=== PATIENT | male | born 1995 | race Caucasian/White ===

== ENCOUNTER 2017-01-13 18:55 | Emergency (ER) | payer OTHER ==
[2017-01-13 19:15] VITALS: BP 115/72; PULSE 83; RESP 16; TEMP 96.2
--- NOTE | 2017-01-13 19:33 | ED ---
General Adult HPI - General Chief complaint: Recheck/Abnormal Lab/Rx Stated complaint: Med refill/needs insulin Time Seen by Provider: 01/13/17 19:10 Source: patient Mode of arrival: ambulatory Limitations: no limitations - Related Data Home Medications Medication Instructions Recorded Confirmed Insulin Aspart (For Pump) [NovoLOG 1 unit DIRECTED 01/13/17 01/13/17 (For Pump)] Previous Rx's Medication Instructions Recorded INSULIN LISPRO (For Pump) [humaLOG 0.01 units SQ-PUMP CONTINUOUS #2 01/13/17 (For Pump)] vial Allergies Allergy/AdvReac Type Severity Reaction Status Date / Time No Known Allergies Allergy Verified 01/13/17 19:15 Review of Systems ROS Statement: Those systems with pertinent positive or pertinent negative responses have been documented in the HPI. ROS Other: All systems not noted in ROS Statement are negative. Past Medical History Past Medical History: Diabetes Mellitus History of Any Multi-Drug Resistant Organisms: None Reported Past Surgical History: Tonsillectomy Past Psychological History: No Psychological Hx Reported Smoking Status: Current every day smoker Past Alcohol Use History: None Reported Past Drug Use History: Marijuana General Exam Limitations: no limitations Course Vital Signs 01/13/17 19:11 Temperature 96.2 F L Pulse Rate 83 Respiratory 16 Rate Blood Pressure 115/72 O2 Sat by Pulse 94 L Oximetry Disposition Clinical Impression: Diabetes mellitus, Medication refill Disposition: HOME SELF-CARE Condition: Good Instructions: Type 1 Diabetes in Adults (ED) Additional Instructions: Follow-up with endocrinology for supplies and any further insulin prescriptions. Return for any new, worsening, or concerning symptoms. Prescriptions: INSULIN LISPRO (For Pump) [humaLOG (For Pump)] 0.01 units SQ-PUMP CONTINUOUS #2 vial Referrals: None,Stated [Primary Care Provider] - 1-2 days Claudia Moraes MD [STAFF PHYSICIAN] - 1-2 days Time of Disposition: 19:32
--- NOTE | 2017-01-13 19:37 | ED ---
General Adult HPI - General Chief complaint: Recheck/Abnormal Lab/Rx Stated complaint: Med refill/needs insulin Time Seen by Provider: 01/13/17 19:10 Source: patient Mode of arrival: ambulatory Limitations: no limitations - History of Present Illness Initial comments: 21-year-old male patient presents to emergency permit today for refill of insulin for his insulin pump. Patient states that he has 5 units of insulin left in his pump. Patient states that he was discharged by his pediatric cut off machine operator and has never established care with an adult cut off machine operator. Patient states he did move to [place] for a short time but this is there would not accept his insurance. Patient states that he hasn't had appointments or follow-up with endocrinology for at least 1 year. Patient states that his uncle and he was using his insulin and just refilling his pump on his own. Patient denies any physical symptoms. States he feels "great". Denies any nausea, vomiting, abdominal pain, chest pain, shortness of breath, urinary symptoms, or difficulty with bowel movements. Patient states his blood sugars have been running in the low 200s which is normal for him. He is requesting referral for endocrinology. - Related Data Home Medications Medication Instructions Recorded Confirmed Insulin Aspart (For Pump) [NovoLOG 1 unit DIRECTED 01/13/17 01/13/17 (For Pump)] Previous Rx's Medication Instructions Recorded INSULIN LISPRO (For Pump) [humaLOG 0.01 units SQ-PUMP CONTINUOUS #2 01/13/17 (For Pump)] vial Allergies Allergy/AdvReac Type Severity Reaction Status Date / Time No Known Allergies Allergy Verified 01/13/17 19:15 Review of Systems ROS Statement: Those systems with pertinent positive or pertinent negative responses have been documented in the HPI. ROS Other: All systems not noted in ROS Statement are negative. Past Medical History Past Medical History: Diabetes Mellitus History of Any Multi-Drug Resistant Organisms: None Reported Past Surgical History: Tonsillectomy Past Psychological History: No Psychological Hx Reported Smoking Status: Current every day smoker Past Alcohol Use History: None Reported Past Drug Use History: Marijuana General Exam Limitations: no limitations General appearance: alert, in no apparent distress Eye exam: Present: normal appearance, PERRL, EOMI. Absent: scleral icterus, conjunctival injection, periorbital swelling ENT exam: Present: normal exam, mucous membranes moist Respiratory exam: Present: normal lung sounds bilaterally. Absent: respiratory distress, wheezes, rales, rhonchi, stridor Cardiovascular Exam: Present: regular rate, normal rhythm, normal heart sounds. Absent: systolic murmur, diastolic murmur, rubs, gallop, clicks GI/Abdominal exam: Present: soft, normal bowel sounds. Absent: distended, tenderness, guarding, rebound, rigid Extremities exam: Present: normal inspection, full ROM, normal capillary refill. Absent: tenderness, pedal edema, joint swelling, calf tenderness Back exam: Present: normal inspection Neurological exam: Present: alert, oriented X3, CN II-XII intact Psychiatric exam: Present: normal affect, normal mood Skin exam: Present: warm, dry, intact, normal color. Absent: rash Course Vital Signs 01/13/17 19:11 Temperature 96.2 F L Pulse Rate 83 Respiratory 16 Rate Blood Pressure 115/72 O2 Sat by Pulse 94 L Oximetry Medical Decision Making - Medical Decision Making 21-year-old male patient presented to emergency department today for refill on his insulin. Patient is absent of any physical signs or symptoms. Patient states he feels a normal physical health. Patient will be given a prescription for 2 vials of his insulin for his pump. Discussed the importance of establishing with an adult cut off machine operator. Informed patient that he must follow-up with his cut off machine operator to get new supplies and any further prescriptions for insulin. Patient started to return for any new, worsening, or concerning symptoms. Patient verbalized understanding and agrees with this plan. Disposition Clinical Impression: Diabetes mellitus, Medication refill Disposition: HOME SELF-CARE Condition: Good Instructions: Type 1 Diabetes in Adults (ED) Additional Instructions: Follow-up with endocrinology for supplies and any further insulin prescriptions. Return for any new, worsening, or concerning symptoms. Prescriptions: INSULIN LISPRO (For Pump) [humaLOG (For Pump)] 0.01 units SQ-PUMP CONTINUOUS #2 vial Referrals: None,Stated [Primary Care Provider] - 1-2 days Claudia Moraes MD [STAFF PHYSICIAN] - 1-2 days
== END 2017-01-13 19:47 | disposition home or self-care (01) ==
LOC: EC 18:55
DX: E11.9 Type 2 diabetes mellitus without complications (principal); Z76.0 Encounter for issue of repeat prescription; F17.200 Nicotine dependence, unspecified, uncomplicated; Z79.4 Long term (current) use of insulin
CPT/HCPCS: 99282

== ENCOUNTER 2017-04-05 04:46 | Emergency (ER) | payer OTHER ==
[2017-04-05 04:57] VITALS: TEMP 98
[2017-04-05 05:09] LABS: Glucose,Whole Blood 264 mg/dL (75-99)
[2017-04-05 06:46] VITALS: BP 118/57; PULSE 82; RESP 16
--- NOTE | 2017-04-05 07:13 | ED ---
Recheck HPI - General Chief Complaint: Recheck/Abnormal Lab/Rx Stated Complaint: diabetic issues Time Seen by Provider: 04/05/17 05:01 Source: patient Mode of arrival: ambulatory Limitations: no limitations - History of Present Illness Initial Comments: This patient is a 22-year-old man who states that he ran out of his Lantus insulin yesterday. The patient states that he tried to phone his physician but was unable to reach anyone. The patient denies any symptoms. MD Complaint: medication refill request -: days(s) Returns Today for: request for prescription Symptoms Since Prior Visit: no new symptoms Context: ran out of medication Associated Symptoms: none - Related Data Previous Rx's Medication Instructions Recorded Insulin Aspart (For Pump) [NovoLOG 0.01 unit SQ-PUMP CONTINUOUS #2 01/13/17 (For Pump)] vial Allergies Allergy/AdvReac Type Severity Reaction Status Date / Time No Known Allergies Allergy Verified 01/13/17 19:15 Review of Systems ROS Statement: Those systems with pertinent positive or pertinent negative responses have been documented in the HPI. ROS Other: All systems not noted in ROS Statement are negative. Constitutional: Denies: fever, chills Respiratory: Denies: cough, dyspnea Cardiovascular: Denies: palpitations Endocrine: Denies: polydipsia, polyuria Gastrointestinal: Denies: abdominal pain, vomiting Genitourinary: Denies: dysuria, hematuria Skin: Denies: rash Past Medical History Past Medical History: Diabetes Mellitus Additional Past Medical History / Comment(s): neuropathy History of Any Multi-Drug Resistant Organisms: None Reported Past Surgical History: Tonsillectomy Past Psychological History: No Psychological Hx Reported Smoking Status: Current every day smoker Past Alcohol Use History: Occasional Past Drug Use History: Marijuana General Exam Limitations: no limitations General appearance: alert, in no apparent distress Respiratory exam: Present: normal lung sounds bilaterally. Absent: respiratory distress, wheezes, rales, rhonchi, stridor Cardiovascular Exam: Present: regular rate, normal rhythm, normal heart sounds. Absent: systolic murmur, diastolic murmur, rubs, gallop GI/Abdominal exam: Present: soft. Absent: distended, tenderness, guarding, rebound Skin exam: Present: warm, dry, intact, normal color. Absent: rash Course Vital Signs 04/05/17 04/05/17 04:47 06:44 Temperature 98.0 F Pulse Rate 100 82 Respiratory 18 16 Rate Blood Pressure 126/81 118/57 O2 Sat by Pulse 98 97 Oximetry Medical Decision Making - Lab Data Lab Results 04/05/17 Range/Units 04:56 POC Glucose (mg/dL) 264 H (75-99) mg/dL POC Glu Automatic Seamer ID Autumn Boo Disposition Clinical Impression: Encounter for medication refill Disposition: HOME SELF-CARE Condition: Fair Instructions: Medicine Refill (ED) Referrals: Mina Carrasquillo MD [Primary Care Provider] - 1-2 days
[2017-04-05 07:29] LABS: Glucose,Whole Blood 197 mg/dL (75-99)
[2017-04-05] MEDS ORDERED: INSULIN GLARGINE 100 UNIT/ML 10 ML VIAL SQ STA (07:32)
== END 2017-04-05 07:55 | disposition home or self-care (01) ==
LOC: EC 04:46
DX: Z76.0 Encounter for issue of repeat prescription (principal); F17.200 Nicotine dependence, unspecified, uncomplicated
CPT/HCPCS: 36415; 99282

== ENCOUNTER 2018-01-14 06:42 | Emergency (ER) | payer OTHER ==
[2018-01-14 06:47] VITALS: BP 142/95; PULSE 88; RESP 18; TEMP 98.2
--- NOTE | 2018-01-14 07:03 | ED ---
General Adult HPI - General Chief complaint: ENT Stated complaint: congestion,jaw pain Time Seen by Provider: 01/14/18 06:51 Source: patient, RN notes reviewed Mode of arrival: ambulatory Limitations: no limitations - History of Present Illness Initial comments: This is a 22-year-old male presents emergency Department chief complaint of right-sided facial pain, URI symptoms. Patient states she's been sick for last 6 days. He states he has nasal congestion, cough which is productive in the morning. Patient states she has no chest pain or shortness of breath. Denies any fevers or chills. Patient states he has tried cough suppressants, DayQuil and NyQuil with minimal relief. Patient states he is a daily smoker. He states only thing that helps his cough and congestion is smoking marijuana daily. Patient states he has very poor dentition states that he has a bad tooth on the right which is cracked. Patient has noticed increased pain last 2- 3 days. Patient has not seen a dentist recent past. Patient has NO KNOWN DRUG ALLERGIES. Denies any headache, neck pain or neck stiffness. - Related Data Previous Rx's Medication Instructions Recorded Insulin Aspart (For Pump) [NovoLOG 0.01 unit SQ-PUMP CONTINUOUS #2 01/13/17 (For Pump)] vial Amoxicillin/Potassium Clav 1 tab PO Q12HR #20 tab 01/14/18 [Augmentin 875-125 Tablet] Ibuprofen [Motrin] 600 mg PO Q8HR PRN #30 tab 01/14/18 Allergies Allergy/AdvReac Type Severity Reaction Status Date / Time No Known Allergies Allergy Verified 01/14/18 06:47 Review of Systems ROS Statement: Those systems with pertinent positive or pertinent negative responses have been documented in the HPI. ROS Other: All systems not noted in ROS Statement are negative. Past Medical History Past Medical History: Diabetes Mellitus Additional Past Medical History / Comment(s): neuropathy History of Any Multi-Drug Resistant Organisms: None Reported Past Surgical History: Tonsillectomy Past Psychological History: No Psychological Hx Reported Smoking Status: Current every day smoker Past Alcohol Use History: Occasional Past Drug Use History: Marijuana General Exam Limitations: no limitations General appearance: alert, in no apparent distress Head exam: Present: atraumatic, normocephalic, normal inspection Eye exam: Present: normal appearance, PERRL, EOMI. Absent: scleral icterus, conjunctival injection, periorbital swelling ENT exam: Present: mucous membranes moist, TM's normal bilaterally, normal external ear exam. Absent: normal oropharynx (Multiple dental caries noted, dental erosion, there is a dental fracture #3, no abscess noted, postnasal drainage) Neck exam: Present: normal inspection, full ROM. Absent: tenderness, meningismus, lymphadenopathy Respiratory exam: Present: normal lung sounds bilaterally. Absent: respiratory distress, wheezes, rales, rhonchi, stridor Cardiovascular Exam: Present: regular rate, normal rhythm, normal heart sounds. Absent: systolic murmur, diastolic murmur, rubs, gallop, clicks Skin exam: Present: warm, dry, intact, normal color. Absent: rash Course Vital Signs 01/14/18 06:45 Temperature 98.2 F Pulse Rate 88 Respiratory 18 Rate Blood Pressure 142/95 O2 Sat by Pulse 99 Oximetry Medical Decision Making - Medical Decision Making 22-year-old male presented for multiple complaints. Patient has dental pain related to a dental infection from dental fracture. Patient will be placed on antibiotics. He is advised follow-up with dentist in the next 1-2 days. Patient also has upper respiratory infection is advised to continue over-the- counter cough and cold medications as directed and follow-up with PCP. Disposition Clinical Impression: Pain due to dental caries, Dental infection, URI (upper respiratory infection) Disposition: HOME SELF-CARE Condition: Stable Instructions: Dental Abscess (ED), Upper Respiratory Infection (ED) Additional Instructions: Please return to the Emergency Department if symptoms worsen or any other concerns. Prescriptions: Amoxicillin/Potassium Clav [Augmentin 875-125 Tablet] 1 tab PO Q12HR #20 tab Ibuprofen [Motrin] 600 mg PO Q8HR PRN #30 tab PRN Reason: Pain Is patient prescribed a controlled substance at d/c from ED?: No Referrals: None,Stated [Primary Care Provider] - 1-2 days Ankit Adams MD [STAFF PHYSICIAN] - 1-2 days Time of Disposition: 07:01
[2018-01-14] MEDS ORDERED: IBUPROFEN 600 MG STARTER PACK 4 TAB BTL PO STA (07:20)
== END 2018-01-14 07:26 | disposition home or self-care (01) ==
LOC: EC 06:42
DX: K04.7 Periapical abscess without sinus (principal); K02.9 Dental caries, unspecified; J06.9 Acute upper respiratory infection, unspecified; F17.200 Nicotine dependence, unspecified, uncomplicated
CPT/HCPCS: 99283

== ENCOUNTER 2018-06-05 12:29 | Emergency (ER) | payer OTHER ==
[2018-06-05 12:38] VITALS: BP 120/87; PULSE 74; RESP 20; TEMP 97.5
[2018-06-05] MEDS ORDERED: KETOROLAC 30 MG/ML 1 ML VIAL IM STA (12:52)
--- NOTE | 2018-06-05 12:58 | ED ---
General Adult HPI - General Chief complaint: ENT Stated complaint: Oral Pain, Jaw Swelling Time Seen by Provider: 06/05/18 12:46 Source: patient, RN notes reviewed, old records reviewed Mode of arrival: ambulatory Limitations: no limitations - History of Present Illness Initial comments: 23-year-old male presents for evaluation of dental pain and facial swelling. Patient has been scheduled for tooth extraction which is pending at approximately one month. He is has poor dentition and has had chronic issues with his teeth. Over the past one week he said swelling of the right cheek. No fever or chills. He has significant pain in the lower jaw on that side. No ear pain. He 500 mg of amoxicillin once daily for the past one week. - Related Data Home Medications Medication Instructions Recorded Confirmed Gabapentin [Neurontin] 300 mg PO BID 02/21/18 02/21/18 Insulin Aspart [NovoLOG Flexpen] See Protocol SQ ACHS 02/21/18 02/21/18 Insulin Glargine,Hum.rec.anlog 30 unit SQ DAILY 02/21/18 02/21/18 [Basaglar Kwikpen U-100] Previous Rx's Medication Instructions Recorded Clindamycin [Cleocin] 450 mg PO Q8H #30 capsule 06/05/18 Ibuprofen [Motrin] 600 mg PO Q8HR PRN #24 tab 06/05/18 Allergies Allergy/AdvReac Type Severity Reaction Status Date / Time No Known Allergies Allergy Verified 06/05/18 12:38 Review of Systems ROS Statement: Those systems with pertinent positive or pertinent negative responses have been documented in the HPI. ROS Other: All systems not noted in ROS Statement are negative. Past Medical History Past Medical History: Diabetes Mellitus Additional Past Medical History / Comment(s): neuropathy History of Any Multi-Drug Resistant Organisms: None Reported Past Surgical History: Tonsillectomy Past Psychological History: No Psychological Hx Reported Smoking Status: Current every day smoker Past Alcohol Use History: Occasional Past Drug Use History: Marijuana General Exam Limitations: no limitations General appearance: alert, in no apparent distress Head exam: Present: atraumatic, normocephalic Eye exam: Present: normal appearance, PERRL, EOMI ENT exam: Present: mucous membranes moist, TM's normal bilaterally Expanded Ear exam: Present: normal external inspection Mouth exam: Present: tongue normal. Absent: drooling, trismus, muffled voice Teeth exam: Present: dental caries, dental tenderness # (Right lower molars) Throat exam: normal inspection. negative: tonsillar erythema, tonsillomegaly Respiratory exam: Present: normal lung sounds bilaterally. Absent: respiratory distress Cardiovascular Exam: Present: regular rate, normal rhythm Course Vital Signs 06/05/18 12:35 Temperature 97.5 F L Pulse Rate 74 Respiratory 20 Rate Blood Pressure 120/87 O2 Sat by Pulse 99 Oximetry Medical Decision Making - Medical Decision Making 22-year-old male with soft tissue swelling right cheek and poor dentition, likely dental abscess. There is no drainable abscess on exam, there is tenderness to percussion. Patient is taking an appropriate dose of amoxicillin. He will be switched to clindamycin. He will maintain his appointment with his dentist for tooth extraction. Disposition Clinical Impression: Dental caries, Dental abscess Disposition: HOME SELF-CARE Condition: Good Instructions: Toothache (ED), Dental Abscess (ED) Additional Instructions: Please follow up with your dentist. Prescriptions: Clindamycin [Cleocin] 450 mg PO Q8H #30 capsule Ibuprofen [Motrin] 600 mg PO Q8HR PRN #24 tab PRN Reason: Pain Is patient prescribed a controlled substance at d/c from ED?: No Referrals: None,Stated [Primary Care Provider] - 1-2 days Time of Disposition: 12:57
== END 2018-06-05 13:24 | disposition home or self-care (01) ==
LOC: EC 12:29
DX: K02.9 Dental caries, unspecified (principal); K04.7 Periapical abscess without sinus; E11.40 Type 2 diabetes mellitus with diabetic neuropathy, unspecified; F17.200 Nicotine dependence, unspecified, uncomplicated; Z79.4 Long term (current) use of insulin; Z79.899 Other long term (current) drug therapy
CPT/HCPCS: 99283; 96372; J1885

== ENCOUNTER 2018-07-19 21:19 | Emergency (ER) | payer OTHER ==
[2018-07-19 21:26] VITALS: TEMP 98.7
[2018-07-19 21:45] LABS: Glucose,Whole Blood 450 mg/dL (75-99)
[2018-07-19 22:14] LABS: Glucose,Whole Blood 494 mg/dL (75-99)
[2018-07-19] MEDS ORDERED: DICYCLOMINE 20 MG TAB PO STA (23:07)
[2018-07-19 23:17] LABS: Basophils # (A) 0.1 k/uL (0-0.2); Basophils % (A) 1 %; Eosinophils # (A) 0.1 k/uL (0-0.7); Eosinophils % (A) 2 %; HCT 42.7 % (39.0-53.0); HGB 14.5 gm/dL (13.0-17.5); Lymphocytes # (A) 2.8 k/uL (1.0-4.8); Lymphocytes % (A) 43 %; MCH 30.3 pg (25.0-35.0); MCV 89.1 fL (80.0-100.0); Mean Platelet Volume 6.8; Monocytes # (A) 0.3 k/uL (0-1.0); Monocytes % (A) 4 %; Neutrophils # (A) 3.1 k/uL (1.3-7.7); Neutrophils % (A) 48 %; Platelet Count 322 k/uL (150-450); RBC 4.79 m/uL (4.30-5.90); RDW 12.8 % (11.5-15.5); WBC 6.4 k/uL (3.8-10.6)
[2018-07-19 23:23] VITALS: BP 122/78; PULSE 90; RESP 16
[2018-07-19 23:26] LABS: ALT 14 U/L (21-72); AST 15 U/L (17-59); Albumin 4.4 g/dL (3.5-5.0); Alkaline Phosphatase 98 U/L (38-126); Amylase 55 U/L (30-110); Anion Gap 9 mmol/L; Blood Urea Nitrogen 20 mg/dL (9-20); Calcium 9.9 mg/dL (8.4-10.2); Carbon Dioxide 29 mmol/L (22-30); Chloride 98 mmol/L (98-107); Glucose 448 mg/dL (74-99); Lipase 40 U/L (23-300); Potassium 4.3 mmol/L (3.5-5.1); Sodium 136 mmol/L (137-145); Total Bilirubin 0.4 mg/dL (0.2-1.3); Total Protein 7.3 g/dL (6.3-8.2)
[2018-07-19 23:29] LABS: Appearance,Urine Clear (Clear); Bilirubin,Urine Negative (Negative); Blood,Urine Negative (Negative); Color,Urine Light Yellow; Glucose,Urine (UA) 4+ (Negative); Hyaline Casts,Urine 30 /lpf (0-2); Ketones,Urine Negative (Negative); Leukocyte Esterase,Urine Negative (Negative); Mucus,Urine Rare /hpf; Nitrite,Urine Negative (Negative); PH, Urine 5.5 (5.0-8.0); Protein,Urine 1+ (Negative); RBC,Urine 1 /hpf (0-5); Specific Gravity,Urine 1.029 (1.001-1.035); Squamous Epithelial Cell,Urine <1 /hpf (0-4); Urobilinogen,Urine <2.0 mg/dL (<2.0)
--- NOTE | 2018-07-19 23:49 | ED ---
Abdominal Pain HPI - General Chief Complaint: Abdominal Pain Stated Complaint: poss insulin OD Time Seen by Provider: 07/19/18 22:19 Source: patient, family Mode of arrival: ambulatory Limitations: no limitations - History of Present Illness Initial Comments: This patient is 23-year-old man who states that he is concerned that he may have taken bad insulin. The patient had left his insulin 10 in the car and it had frozen. He used it, and thinking that the insulin was ineffective he took another dose from a new pen. The patient noted earlier today that he had been having some suprapubic cramping type pain. It is somewhat intermittent. No change in bowel movements or urination. No nausea and vomiting with. MD Complaint: abdominal pain -: hour(s) Location: suprapubic Migration to: no migration Severity: moderate Quality: cramping Consistency: intermittent Improves With: nothing Worsens With: nothing Associated Symptoms: denies other symptoms - Related Data Home Medications Medication Instructions Recorded Confirmed Insulin Aspart [NovoLOG Flexpen] See Protocol SQ ACHS 02/21/18 07/19/18 Gabapentin [Neurontin] 600 mg PO DAILY 07/19/18 07/19/18 Insulin Glargine [Lantus] 30 unit SQ HS 07/19/18 07/19/18 Allergies Allergy/AdvReac Type Severity Reaction Status Date / Time No Known Allergies Allergy Verified 07/19/18 22:29 Review of Systems ROS Statement: Those systems with pertinent positive or pertinent negative responses have been documented in the HPI. ROS Other: All systems not noted in ROS Statement are negative. Constitutional: Denies: fever, chills Respiratory: Denies: cough, dyspnea Cardiovascular: Denies: chest pain, palpitations, edema Gastrointestinal: Reports: abdominal pain. Denies: nausea, vomiting, diarrhea, constipation Genitourinary: Denies: dysuria, hematuria Musculoskeletal: Denies: back pain Skin: Denies: rash Neurological: Denies: headache, weakness, numbness Past Medical History Past Medical History: Diabetes Mellitus Additional Past Medical History / Comment(s): neuropathy History of Any Multi-Drug Resistant Organisms: None Reported Past Surgical History: Tonsillectomy Past Psychological History: No Psychological Hx Reported Smoking Status: Current every day smoker Past Alcohol Use History: Occasional Past Drug Use History: Marijuana General Exam Limitations: no limitations General appearance: alert, in no apparent distress Head exam: Present: atraumatic, normocephalic Eye exam: Present: normal appearance. Absent: scleral icterus, conjunctival injection ENT exam: Present: normal oropharynx Neck exam: Present: normal inspection Respiratory exam: Present: normal lung sounds bilaterally. Absent: respiratory distress, wheezes, rales, rhonchi, stridor Cardiovascular Exam: Present: regular rate, normal rhythm, normal heart sounds. Absent: systolic murmur, diastolic murmur, rubs, gallop GI/Abdominal exam: Present: soft. Absent: distended, tenderness, guarding, rebound, rigid, mass Extremities exam: Present: normal inspection, normal capillary refill. Absent: pedal edema, calf tenderness Back exam: Present: normal inspection. Absent: CVA tenderness (R), CVA tenderness (L) Skin exam: Present: warm, dry, intact, normal color. Absent: rash Course Vital Signs 07/19/18 07/19/18 21:23 23:21 Temperature 98.7 F Pulse Rate 111 H 90 Respiratory 18 16 Rate Blood Pressure 144/91 122/78 O2 Sat by Pulse 99 99 Oximetry Medical Decision Making - Medical Decision Making Patient is 23-year-old man presenting with some lower abdominal pain and concern about possible bad insulin. His blood sugar is elevated on arrival. I did go to reevaluate the patient, and he was sleeping comfortably therefore had additional IV fluid and following that the blood sugar had decreased. When I went to reevaluate the patient he was angry that he had not been provided the diagnosis, and I recommended imaging however the patient stated that he was leaving and signed out AGAINST MEDICAL ADVICE. His abdominal exam is benign however and do not expect that CT would necessarily have provided the answer - Lab Data Result diagrams: 07/19/18 23:00 07/19/18 23:00 Lab Results 07/19/18 07/19/18 07/19/18 Range/Units 21:42 22:13 23:00 WBC (3.8-10.6) k/uL RBC (4.30-5.90) m/uL Hgb (13.0-17.5) gm/dL Hct (39.0-53.0) % MCV (80.0-100.0) fL MCH (25.0-35.0) pg MCHC (31.0-37.0) g/dL RDW (11.5-15.5) % Plt Count (150-450) k/uL Neutrophils % % Lymphocytes % % Monocytes % % Eosinophils % % Basophils % % Neutrophils # (1.3-7.7) k/uL Lymphocytes # (1.0-4.8) k/uL Monocytes # (0-1.0) k/uL Eosinophils # (0-0.7) k/uL Basophils # (0-0.2) k/uL Sodium 136 L (137-145) mmol/L Potassium 4.3 (3.5-5.1) mmol/L Chloride 98 (98-107) mmol/L Carbon Dioxide 29 (22-30) mmol/L Anion Gap 9 mmol/L BUN 20 (9-20) mg/dL Creatinine 0.81 (0.66-1.25) mg/dL Est GFR (CKD-EPI)AfAm >90 (>60 ml/min/1.73 sqM) Est GFR (CKD-EPI)NonAf >90 (>60 ml/min/1.73 sqM) Glucose 448 H (74-99) mg/dL POC Glucose (mg/dL) 450 H 494 H (75-99) mg/dL POC Glu Medical Staff Physician Ankit Reyna Danielle Calcium 9.9 (8.4-10.2) mg/dL Total Bilirubin 0.4 (0.2-1.3) mg/dL AST 15 L (17-59) U/L ALT 14 L (21-72) U/L Alkaline Phosphatase 98 (38-126) U/L Total Protein 7.3 (6.3-8.2) g/dL Albumin 4.4 (3.5-5.0) g/dL Amylase 55 (30-110) U/L Lipase 40 (23-300) U/L Urine Color Urine Appearance (Clear) Urine pH (5.0-8.0) Ur Specific [place] (1.001-1.035) Urine Protein (Negative) Urine Glucose (UA) (Negative) Urine Ketones (Negative) Urine Blood (Negative) Urine Nitrite (Negative) Urine Bilirubin (Negative) Urine Urobilinogen (<2.0) mg/dL Ur Leukocyte Esterase (Negative) Urine RBC (0-5) /hpf Ur Squamous Epith Cells (0-4) /hpf Hyaline Casts (0-2) /lpf Urine Mucus (None) /hpf Acetone, Qual (Negative) 07/19/18 07/19/18 07/19/18 Range/Units 23:00 23:00 23:00 WBC 6.4 (3.8-10.6) k/uL RBC 4.79 (4.30-5.90) m/uL Hgb 14.5 (13.0-17.5) gm/dL Hct 42.7 (39.0-53.0) % MCV 89.1 (80.0-100.0) fL MCH 30.3 (25.0-35.0) pg MCHC 34.0 (31.0-37.0) g/dL RDW 12.8 (11.5-15.5) % Plt Count 322 (150-450) k/uL Neutrophils % 48 % Lymphocytes % 43 % Monocytes % 4 % Eosinophils % 2 % Basophils % 1 % Neutrophils # 3.1 (1.3-7.7) k/uL Lymphocytes # 2.8 (1.0-4.8) k/uL Monocytes # 0.3 (0-1.0) k/uL Eosinophils # 0.1 (0-0.7) k/uL Basophils # 0.1 (0-0.2) k/uL Sodium (137-145) mmol/L Potassium (3.5-5.1) mmol/L Chloride (98-107) mmol/L Carbon Dioxide (22-30) mmol/L Anion Gap mmol/L BUN (9-20) mg/dL Creatinine (0.66-1.25) mg/dL Est GFR (CKD-EPI)AfAm (>60 ml/min/1.73 sqM) Est GFR (CKD-EPI)NonAf (>60 ml/min/1.73 sqM) Glucose (74-99) mg/dL POC Glucose (mg/dL) (75-99) mg/dL POC Glu Medical Staff Physician ID Calcium (8.4-10.2) mg/dL Total Bilirubin (0.2-1.3) mg/dL AST (17-59) U/L ALT (21-72) U/L Alkaline Phosphatase (38-126) U/L Total Protein (6.3-8.2) g/dL Albumin (3.5-5.0) g/dL Amylase (30-110) U/L Lipase (23-300) U/L Urine Color Light Yellow Urine Appearance Clear (Clear) Urine pH 5.5 (5.0-8.0) Ur Specific [place] 1.029 (1.001-1.035) Urine Protein 1+ H (Negative) Urine Glucose (UA) 4+ H (Negative) Urine Ketones Negative (Negative) Urine Blood Negative (Negative) Urine Nitrite Negative (Negative) Urine Bilirubin Negative (Negative) Urine Urobilinogen <2.0 (<2.0) mg/dL Ur Leukocyte Esterase Negative (Negative) Urine RBC 1 (0-5) /hpf Ur Squamous Epith Cells <1 (0-4) /hpf Hyaline Casts 30 H (0-2) /lpf Urine Mucus Rare H (None) /hpf Acetone, Qual Negative (Negative) 07/20/18 Range/Units 03:07 WBC (3.8-10.6) k/uL RBC (4.30-5.90) m/uL Hgb (13.0-17.5) gm/dL Hct (39.0-53.0) % MCV (80.0-100.0) fL MCH (25.0-35.0) pg MCHC (31.0-37.0) g/dL RDW (11.5-15.5) % Plt Count (150-450) k/uL Neutrophils % % Lymphocytes % % Monocytes % % Eosinophils % % Basophils % % Neutrophils # (1.3-7.7) k/uL Lymphocytes # (1.0-4.8) k/uL Monocytes # (0-1.0) k/uL Eosinophils # (0-0.7) k/uL Basophils # (0-0.2) k/uL Sodium (137-145) mmol/L Potassium (3.5-5.1) mmol/L Chloride (98-107) mmol/L Carbon Dioxide (22-30) mmol/L Anion Gap mmol/L BUN (9-20) mg/dL Creatinine (0.66-1.25) mg/dL Est GFR (CKD-EPI)AfAm (>60 ml/min/1.73 sqM) Est GFR (CKD-EPI)NonAf (>60 ml/min/1.73 sqM) Glucose (74-99) mg/dL POC Glucose (mg/dL) 98 (75-99) mg/dL POC Glu Medical Staff Physician ID Jorge L Raygoza A Calcium (8.4-10.2) mg/dL Total Bilirubin (0.2-1.3) mg/dL AST (17-59) U/L ALT (21-72) U/L Alkaline Phosphatase (38-126) U/L Total Protein (6.3-8.2) g/dL Albumin (3.5-5.0) g/dL Amylase (30-110) U/L Lipase (23-300) U/L Urine Color Urine Appearance (Clear) Urine pH (5.0-8.0) Ur Specific [place] (1.001-1.035) Urine Protein (Negative) Urine Glucose (UA) (Negative) Urine Ketones (Negative) Urine Blood (Negative) Urine Nitrite (Negative) Urine Bilirubin (Negative) Urine Urobilinogen (<2.0) mg/dL Ur Leukocyte Esterase (Negative) Urine RBC (0-5) /hpf Ur Squamous Epith Cells (0-4) /hpf Hyaline Casts (0-2) /lpf Urine Mucus (None) /hpf Acetone, Qual (Negative) Disposition Clinical Impression: Abdominal pain, Hyperglycemia Disposition: Left Against Medical Advice Condition: Undetermined Referrals: Mina Carrasquillo MD [Primary Care Provider] - 1-2 days
[2018-07-19] MEDS ORDERED: SODIUM CHLORIDE 0.9% 2,000 ML IV ONE (23:50)
[2018-07-19] MEDS ORDERED: INSULIN REGULAR 100 UNIT/ML VIAL SQ STA (23:50)
[2018-07-20 03:09] LABS: Glucose,Whole Blood 98 mg/dL (75-99)
== END 2018-07-20 03:14 | disposition left against medical advice (07) ==
LOC: EC 21:19
DX: E11.65 Type 2 diabetes mellitus with hyperglycemia (principal); R10.30 Lower abdominal pain, unspecified; E11.40 Type 2 diabetes mellitus with diabetic neuropathy, unspecified; F17.200 Nicotine dependence, unspecified, uncomplicated; Z79.4 Long term (current) use of insulin; Z79.899 Other long term (current) drug therapy
CPT/HCPCS: 36415; 80053; 81001; 82009; 82150; 83690; 85025; 96360; 96361; 99284

== ENCOUNTER 2018-10-01 15:28 | Emergency (ER) | payer OTHER ==
[2018-10-01] MEDS ORDERED: SODIUM CHLORIDE 0.9% 1,000 ML IV STA ×2 (16:24)
[2018-10-01] MEDS ORDERED: ONDANSETRON 4 MG/2 ML VIAL IVP STA (16:24)
[2018-10-01] MEDS ORDERED: KETOROLAC 30 MG/ML 1 ML VIAL IVP STA (16:26)
--- NOTE | 2018-10-01 16:39 | ED ---
Nausea/Vomiting/Diarrhea HPI - General Chief complaint: Nausea/Vomiting/Diarrhea Stated complaint: vomiting/diarrhea Time Seen by Provider: 10/01/18 15:59 Source: patient, RN notes reviewed, old records reviewed Mode of arrival: ambulatory Limitations: no limitations - History of Present Illness Initial comments: Patient is a 23-year-old female who presents emergency Department today with complaints of nausea vomiting diarrhea since 4 AM. He reports his roommate had similar symptoms that lasted a short period time. Patient is a diabetic. She reports his blood sugar was 370 earlier today. Patient denies any recent fever, chills, shortness of breath, chest pain, back pain, abdominal pain, nausea vomiting, numbness or tingling, dysuria or hematuria, constipation or diarrhea, headaches or visual changes, or any other current symptoms - Related Data Home Medications Medication Instructions Recorded Confirmed Gabapentin [Neurontin] 300 mg PO DAILY 07/19/18 10/01/18 Insulin Glargine [Lantus] 30 unit SQ QAM 07/19/18 10/01/18 Insulin Glargine,Hum.rec.anlog See Protocol SQ TID-W/MEALS 10/01/18 10/01/18 [Basaglar Kwikpen U-100] Previous Rx's Medication Instructions Recorded Loperamide [Imodium] 2 mg PO QID #10 capsule 10/01/18 Ondansetron Odt [Zofran Odt] 4 mg PO Q8HR PRN #12 tab 10/01/18 Allergies Allergy/AdvReac Type Severity Reaction Status Date / Time No Known Allergies Allergy Verified 10/01/18 16:14 Review of Systems ROS Statement: Those systems with pertinent positive or pertinent negative responses have been documented in the HPI. ROS Other: All systems not noted in ROS Statement are negative. Past Medical History Past Medical History: Diabetes Mellitus Additional Past Medical History / Comment(s): neuropathy History of Any Multi-Drug Resistant Organisms: None Reported Past Surgical History: Tonsillectomy Past Psychological History: No Psychological Hx Reported Smoking Status: Current every day smoker Past Alcohol Use History: Occasional Past Drug Use History: Marijuana General Exam - General Exam Comments Initial Comments: 23-year-old male. Alert and oriented. No distress. Limitations: no limitations General appearance: alert, in no apparent distress Head exam: Present: atraumatic, normocephalic, normal inspection Eye exam: Present: normal appearance, PERRL, EOMI. Absent: scleral icterus, conjunctival injection, periorbital swelling ENT exam: Present: normal exam, mucous membranes moist Neck exam: Present: normal inspection. Absent: tenderness, meningismus, lymphadenopathy Respiratory exam: Present: normal lung sounds bilaterally. Absent: respiratory distress, wheezes, rales, rhonchi, stridor Cardiovascular Exam: Present: regular rate, normal rhythm, normal heart sounds. Absent: systolic murmur, diastolic murmur, rubs, gallop, clicks GI/Abdominal exam: Present: soft, normal bowel sounds, other (Abdomen soft, nontender.). Absent: distended, guarding, rebound, rigid Extremities exam: Present: normal inspection, full ROM, normal capillary refill. Absent: tenderness, pedal edema, joint swelling, calf tenderness Back exam: Present: normal inspection Neurological exam: Present: alert, oriented X3, CN II-XII intact Psychiatric exam: Present: normal affect, normal mood Course Vital Signs 10/01/18 10/01/18 10/01/18 15:40 16:54 17:48 Temperature 98.7 F 99.3 F 99.4 F Pulse Rate 116 H 100 104 H Respiratory 18 20 18 Rate Blood Pressure 121/77 129/81 127/86 O2 Sat by Pulse 100 99 100 Oximetry 10/01/18 19:06 Temperature Pulse Rate 104 H Respiratory 18 Rate Blood Pressure 122/70 O2 Sat by Pulse 97 Oximetry Medical Decision Making - Medical Decision Making 23-year-old male diabetic presents nausea vomiting diarrhea for the past 12 hours. He complains of cramping abdominal pain. He's had some watery diarrhea while in ED. At this time Patient remains cramping. Is given IV fluids labwork obtained. Labs unremarkable. Acetones negative. Patient is not in DKA. Patient was ready for DC. On reevaluation he continued complaining of nausea and feel well. He complains of some cramping. His abdomen continues to be soft and no significant tenderness noted. Patient will be discharged after receiving Reglan Benadryl and Protonix and another bolus of fluids. I believe patient's symptoms are likely related to viral gastritis. - Lab Data Result diagrams: 10/01/18 16:45 10/01/18 16:45 Lab Results 10/01/18 10/01/18 10/01/18 Range/Units 16:45 16:45 18:37 WBC 8.2 (3.8-10.6) k/uL RBC 5.47 (4.30-5.90) m/uL Hgb 16.5 (13.0-17.5) gm/dL Hct 48.6 (39.0-53.0) % MCV 89.0 (80.0-100.0) fL MCH 30.3 (25.0-35.0) pg MCHC 34.0 (31.0-37.0) g/dL RDW 13.9 (11.5-15.5) % Plt Count 246 (150-450) k/uL Neutrophils % 92 % Lymphocytes % 4 % Monocytes % 3 % Eosinophils % 0 % Basophils % 0 % Neutrophils # 7.5 (1.3-7.7) k/uL Lymphocytes # 0.3 L (1.0-4.8) k/uL Monocytes # 0.3 (0-1.0) k/uL Eosinophils # 0.0 (0-0.7) k/uL Basophils # 0.0 (0-0.2) k/uL Sodium 138 (137-145) mmol/L Potassium 4.5 (3.5-5.1) mmol/L Chloride 102 (98-107) mmol/L Carbon Dioxide 27 (22-30) mmol/L Anion Gap 9 mmol/L BUN 21 H (9-20) mg/dL Creatinine 0.65 L (0.66-1.25) mg/dL Est GFR (CKD-EPI)AfAm >90 (>60 ml/min/1.73 sqM) Est GFR (CKD-EPI)NonAf >90 (>60 ml/min/1.73 sqM) Glucose 314 H (74-99) mg/dL Calcium 9.3 (8.4-10.2) mg/dL Total Bilirubin 0.7 (0.2-1.3) mg/dL AST 19 (17-59) U/L ALT 24 (21-72) U/L Alkaline Phosphatase 84 (38-126) U/L Total Protein 7.1 (6.3-8.2) g/dL Albumin 4.4 (3.5-5.0) g/dL Amylase 43 (30-110) U/L Lipase <10 L (23-300) U/L Urine Color Light Yellow Urine Appearance Clear (Clear) Urine pH 5.5 (5.0-8.0) Ur Specific [place] 1.045 H (1.001-1.035) Urine Protein Negative (Negative) Urine Glucose (UA) 4+ H (Negative) Urine Ketones Negative (Negative) Urine Blood Negative (Negative) Urine Nitrite Negative (Negative) Urine Bilirubin Negative (Negative) Urine Urobilinogen <2.0 (<2.0) mg/dL Ur Leukocyte Esterase Negative (Negative) Acetone, Qual Negative (Negative) Disposition Clinical Impression: Gastroenteritis Disposition: HOME SELF-CARE Condition: Good Instructions (If sedation given, give patient instructions): Acute Nausea and Vomiting (ED), Acute Diarrhea (ED) Additional Instructions: Follow-up with primary care doctor. Take nausea medicine and Imodium as prescribed. Return to emergency department if any alarming signs or symptoms occur. Prescriptions: Loperamide [Imodium] 2 mg PO QID #10 capsule Ondansetron Odt [Zofran Odt] 4 mg PO Q8HR PRN #12 tab PRN Reason: Nausea Is patient prescribed a controlled substance at d/c from ED?: No Referrals: None,Stated [Primary Care Provider] - 1-2 days Stephanie Amezcua MD [STAFF PHYSICIAN] - 1-2 days Time of Disposition: 18:31
[2018-10-01 17:18] LABS: ALT 24 U/L (21-72); AST 19 U/L (17-59); Albumin 4.4 g/dL (3.5-5.0); Alkaline Phosphatase 84 U/L (38-126); Amylase 43 U/L (30-110); Anion Gap 9 mmol/L; Blood Urea Nitrogen 21 mg/dL (9-20); Calcium 9.3 mg/dL (8.4-10.2); Carbon Dioxide 27 mmol/L (22-30); Chloride 102 mmol/L (98-107); Glucose 314 mg/dL (74-99); Lipase <10 U/L (23-300); Potassium 4.5 mmol/L (3.5-5.1); Sodium 138 mmol/L (137-145); Total Bilirubin 0.7 mg/dL (0.2-1.3); Total Protein 7.1 g/dL (6.3-8.2)
[2018-10-01 17:30] LABS: Basophils % (A) 0 %; Eosinophils % (A) 0 %; HCT 48.6 % (39.0-53.0); HGB 16.5 gm/dL (13.0-17.5); Lymphocytes # (A) 0.3 k/uL (1.0-4.8); Lymphocytes % (A) 4 %; MCH 30.3 pg (25.0-35.0); Mean Platelet Volume 7.9; Monocytes # (A) 0.3 k/uL (0-1.0); Monocytes % (A) 3 %; Neutrophils # (A) 7.5 k/uL (1.3-7.7); Neutrophils % (A) 92 %; Platelet Count 246 k/uL (150-450); RBC 5.47 m/uL (4.30-5.90); RDW 13.9 % (11.5-15.5); WBC 8.2 k/uL (3.8-10.6)
[2018-10-01 17:50] VITALS: TEMP 99.4
[2018-10-01 18:46] LABS: Appearance,Urine Clear (Clear); Bilirubin,Urine Negative (Negative); Blood,Urine Negative (Negative); Color,Urine Light Yellow; Glucose,Urine (UA) 4+ (Negative); Ketones,Urine Negative (Negative); Leukocyte Esterase,Urine Negative (Negative); Nitrite,Urine Negative (Negative); PH, Urine 5.5 (5.0-8.0); Protein,Urine Negative (Negative); Specific Gravity,Urine 1.045 (1.001-1.035); Urobilinogen,Urine <2.0 mg/dL (<2.0)
[2018-10-01] MEDS ORDERED: METOCLOPRAMIDE 5 MG/ML 2 ML VIAL IVP STA (19:41)
[2018-10-01] MEDS ORDERED: DICYCLOMINE 10 MG/ML 2 ML AMP IM STA (19:41)
[2018-10-01] MEDS ORDERED: diphenhydrAMINE 50 MG/ML 1 ML VIAL IVP STA (19:41)
[2018-10-01] MEDS ORDERED: PANTOPRAZOLE 40 MG/10 ML VIAL IVP STA (19:41)
[2018-10-01] MEDS ORDERED: SODIUM CHLORIDE 0.9% 1,000 ML IV ONE (20:26)
[2018-10-01 21:06] VITALS: BP 123/84; PULSE 108; RESP 16
== END 2018-10-01 20:59 | disposition home or self-care (01) ==
LOC: EC 15:28
DX: K52.9 Noninfective gastroenteritis and colitis, unspecified (principal); E11.40 Type 2 diabetes mellitus with diabetic neuropathy, unspecified; F17.200 Nicotine dependence, unspecified, uncomplicated; Z79.4 Long term (current) use of insulin; Z79.899 Other long term (current) drug therapy; Z53.29 Procedure and treatment not carried out because of patient's decision for other reasons
CPT/HCPCS: 36415; 80053; 81003; 82009; 82150; 83690; 85025; 96361; 96372; 96374; 96375; 99284

== ENCOUNTER 2019-05-14 16:49 | Emergency (ER) | payer OTHER ==
[2019-05-14 16:56] LABS: Glucose,Whole Blood 302 mg/dL (75-99)
[2019-05-14 16:59] VITALS: BP 141/84; PULSE 100; RESP 18; TEMP 97.5
--- NOTE | 2019-05-14 17:31 | ED ---
Recheck HPI - General Chief Complaint: Recheck/Abnormal Lab/Rx Stated Complaint: Shaking Time Seen by Provider: 05/14/19 17:24 Source: patient Mode of arrival: ambulatory Limitations: no limitations - History of Present Illness Initial Comments: And went to evaluate the patient patient stated that he was leaving as he didn't want to wait any longer. - Related Data Home Medications Medication Instructions Recorded Confirmed Gabapentin [Neurontin] 300 mg PO DAILY 07/19/18 10/01/18 Insulin Glargine [Lantus] 30 unit SQ QAM 07/19/18 10/01/18 Insulin Glargine,Hum.rec.anlog See Protocol SQ TID-W/MEALS 10/01/18 10/01/18 [Basaglar Kwikpen U-100] Previous Rx's Medication Instructions Recorded Loperamide [Imodium] 2 mg PO QID #10 capsule 10/01/18 Ondansetron Odt [Zofran Odt] 4 mg PO Q8HR PRN #12 tab 10/01/18 Allergies Allergy/AdvReac Type Severity Reaction Status Date / Time No Known Allergies Allergy Verified 05/14/19 16:51 Review of Systems ROS Statement: Those systems with pertinent positive or pertinent negative responses have been documented in the HPI. ROS Other: All systems not noted in ROS Statement are negative. Past Medical History Past Medical History: Diabetes Mellitus Additional Past Medical History / Comment(s): neuropathy History of Any Multi-Drug Resistant Organisms: None Reported Past Surgical History: Tonsillectomy Past Psychological History: No Psychological Hx Reported Smoking Status: Never smoker Past Alcohol Use History: Occasional Past Drug Use History: Marijuana General Exam Limitations: no limitations Course Vital Signs 05/14/19 16:55 Temperature 97.5 F L Pulse Rate 100 Respiratory 18 Rate Blood Pressure 141/84 O2 Sat by Pulse 99 Oximetry Medical Decision Making - Medical Decision Making Patient's left without full evaluation. - Lab Data Lab Results 05/14/19 Range/Units 16:55 POC Glucose (mg/dL) 302 H (75-99) mg/dL POC Glu Commercial Relationship Manager ID Cande Angulo Disposition Clinical Impression: Shaking Disposition: Left Against Medical Advice Referrals: Mina Carrasquillo MD [Primary Care Provider] - 1-2 days
== END 2019-05-14 17:29 | disposition left against medical advice (07) ==
LOC: EC 16:49
DX: R25.1 Tremor, unspecified (principal); Z53.29 Procedure and treatment not carried out because of patient's decision for other reasons; E11.9 Type 2 diabetes mellitus without complications; Z79.4 Long term (current) use of insulin
CPT/HCPCS: 36415; 99284

== ENCOUNTER 2019-12-03 20:10 | Emergency (ER) | payer OTHER ==
[2019-12-03 20:29] VITALS: BP 115/77; PULSE 89; RESP 20; TEMP 98.5
--- NOTE | 2019-12-03 21:13 | ED ---
Recheck HPI - General Chief Complaint: Recheck/Abnormal Lab/Rx Stated Complaint: Diabetic issues Time Seen by Provider: 12/03/19 20:31 Source: patient Mode of arrival: ambulatory Limitations: no limitations - History of Present Illness Initial Comments: 24-year-old male presenting today for chief complaint of "omni pod" fell off. Patient is a type1 diabetic and has a monitor that watches his sugar minute by minute. He states that he also had an omnipod that injected small doses of insulin as needed for his basal rate. Patient states he sugars have been around low 200s which isnt unusual for him. he states he has regular insulin at home but would prefer a long acting insulin as his omni pod replacement does not come in until Thursday of this upcoming week (3 days). Patient SOB, increased urination or concern for DKA> He states he simply came for medication refill. SUgar on monitor on arrival 224. - Related Data Home Medications Medication Instructions Recorded Confirmed Gabapentin [Neurontin] 300 mg PO DAILY 07/19/18 10/01/18 Insulin Glargine [Lantus] 30 unit SQ QAM 07/19/18 10/01/18 Insulin Glargine,Hum.rec.anlog See Protocol SQ TID-W/MEALS 10/01/18 10/01/18 [Basaglar Kwikpen U-100] Previous Rx's Medication Instructions Recorded Loperamide [Imodium] 2 mg PO QID #10 capsule 10/01/18 Ondansetron Odt [Zofran Odt] 4 mg PO Q8HR PRN #12 tab 10/01/18 Insulin Glargine,Hum.rec.anlog 20 unit SQ DAILY 3 Days #1 pen 12/03/19 [Basaglar Kwikpen U-100] Allergies Allergy/AdvReac Type Severity Reaction Status Date / Time No Known Allergies Allergy Verified 12/03/19 20:29 Review of Systems ROS Statement: Those systems with pertinent positive or pertinent negative responses have been documented in the HPI. ROS Other: All systems not noted in ROS Statement are negative. Past Medical History Past Medical History: Diabetes Mellitus Additional Past Medical History / Comment(s): neuropathy History of Any Multi-Drug Resistant Organisms: None Reported Past Surgical History: Tonsillectomy Past Psychological History: No Psychological Hx Reported Smoking Status: Never smoker Past Alcohol Use History: Occasional Past Drug Use History: Marijuana General Exam - General Exam Comments Initial Comments: General: The patient is awake and alert, in no distress, and does not appear acutely ill. Eye: Pupils are equal, round and reactive to light, extra-ocular movements are intact. No nystagmus. There is normal conjunctiva bilaterally. No signs of icterus. Neurological: A&O x 3. CN II-XII intact grossly, There are no obvious motor or sensory deficits. Coordination appears grossly intact. Speech is normal. Skin: Skin is warm and dry and no rashes or lesions are noted. Psychiatric: Cooperative, appropriate mood & affect, normal judgment. Limitations: no limitations Course Vital Signs 12/03/19 20:26 Temperature 98.5 F Pulse Rate 89 Respiratory 20 Rate Blood Pressure 115/77 O2 Sat by Pulse 98 Oximetry Medical Decision Making - Medical Decision Making 24yo presenting for medication refill, wanting a long acting insulin as he has used basalglar in the past when his omni pod fell of between refills. States usually takes 26units 1x daily. I consulted pharmacy who recommend 20units of basaglar once daily. Patient is to monitor sugars before administration. Patient is to contact PCP thursday morning to discuss malfunction. Patient otherwise has no additional complaints and was discharged appearing well after discussing case wtih Dr. Willis. Patient was followed up with on 12/04/19--he states that his sugars have maintained with the basaglar pen around his usual values, denies hypoglycemia. Disposition Clinical Impression: Medication refill Disposition: HOME SELF-CARE Condition: Good Additional Instructions: Please use medication as discussed. Please follow-up with family doctor on Thursday. Please return to emergency room if the symptoms increase or worsen or for any other concerns. Prescriptions: Insulin Glargine,Hum.rec.anlog [Basaglar Kwikpen U-100] 20 unit SQ DAILY 3 Days #1 pen Is patient prescribed a controlled substance at d/c from ED?: No Referrals: Mina Carrasquillo MD [Primary Care Provider] - 1-2 days Time of Disposition: 21:13
== END 2019-12-03 21:32 | disposition home or self-care (01) ==
LOC: EC 20:10
DX: Z76.0 Encounter for issue of repeat prescription (principal); E10.40 Type 1 diabetes mellitus with diabetic neuropathy, unspecified; Z79.4 Long term (current) use of insulin; Z79.899 Other long term (current) drug therapy
CPT/HCPCS: 99281